=== PATIENT | female | born 1995 | race Asian ===

== ENCOUNTER 2018-12-06 04:16 | Inpatient (IN) | payer OTHER ==
[~2018-12-06] VITALS: Ht 167.6 cm; Wt 83.9 kg
[2018-12-06 04:22] VITALS: Ht 167.6 cm; Wt 83.9 kg
[2018-12-06 05:52] LABS: BASOPHIL % 0.4 % (0-2); PLATELET COUNT 260 x10^3mcL (130-400); RED CELL DISTRIBUTION WIDTH 13.5 % (11.5-14.5)
[2018-12-06 06:25] LABS: CALCIUM 9.8 mg/dL (8.5-10.1); CARBON DIOXIDE 22.4 mmol/L (21-32); CHLORIDE SERUM 103 mmol/L (98-107); CREATININE SERUM 0.8 mg/dL (0.6-1.0); GFR1 > 60 mL/min; GLUCOSE SERUM 101 mg/dL (74-106); POTASSIUM SERUM 3.3 mmol/L (3.5-5.1); SODIUM SERUM 141 mmol/L (136-145)
[2018-12-06 06:29] LABS: ALBUMIN 4.6 g/dL (3.4-5.0); ALKALINE PHOSPHATASE 72 U/L (46-116); ALT/SGPT 29 U/L (14-59); AST/SGOT 14 U/L (15-37); BILIRUBIN TOTAL 0.66 mg/dL (0.20-1.00)
[2018-12-06 06:29] LABS: AMPHETAMINE QUAL UR NONE DETECTED (See below)
[2018-12-06 06:31] LABS: TOTAL PROTEIN, SERUM 8.5 g/dL (6.4-8.2)
[2018-12-07] MEDS ORDERED: FLONASE ALLERG9.9 ML NS (12:43)
[2018-12-07] MEDS ORDERED: QUALITY CHOICE10 M2 PO (12:43)
[2018-12-07 13:52] VITALS: BP 123/71
[2018-12-07 16:51] VITALS: BP 119/65
[2018-12-07 20:35] VITALS: BP 119/65
[2018-12-08] MEDS ORDERED: LEXAPRO5 M1 PO (11:13)
== END 2018-12-07 21:25 | disposition home or self-care (01) | DRG 885 ==
LOC: ED 04:16 → MU 12-07 11:40 → EDBEDREQ 12-07 11:41 → MU 12-07 12:47
PROVIDERS: Emergency Medicine; ADMIT General Practice
DX: F23 Brief psychotic disorder (principal); R45.851 Suicidal ideations; F41.9 Anxiety disorder, unspecified; Z91.010 Allergy to peanuts; J45.909 Unspecified asthma, uncomplicated
CPT/HCPCS: G0480; J1630; J2060; J2250; J7030

== ENCOUNTER 2018-12-30 20:00 | Inpatient (IN) | payer MEDICAID, OTHER ==
[~2018-12-30] VITALS: Ht 162.6 cm; Wt 74.8 kg
[~2018-12-30 20:00] MED LIST: FLONASE ALLERG9.9 ML NS; LEXAPRO5 M1 PO; QUALITY CHOICE10 M2 PO
[2018-12-30 20:33] VITALS: Ht 162.6 cm; Wt 74.8 kg
--- NOTE | 2018-12-30 20:55 | NUR ---
PT BIB PARENTS FOR C/O OF ANXIETY THAT STARTED LAST SATURDAY WHILE AT A FAMILY GATHERING. PER PTS PT FORGOT TO TAKE HER RX OF ESCILATLOPRAM THAT DAY. PT CONTINUED WITH HER ESCILATOPRAM THE NEXT DAY BUT HER ANXIETY CONTINUED. PT HAS RX FOR ATIVAN BUT TOLD HER PARENTS SHE DID NOT WANT TO TAKE IT FOR FEAR SHE MIGHT BECOME ADDICTED. UPON ASSESSMENT PT SITTING ON THE EDGE OF THE BED. PT IS NON-VERBAL AT THIS TIME AND REFUSING TO ANSWER ANY QUESTION. PARENTS REPORT PT HAS BEEN LIKE THIS SINCE SATURDAY. PT APPEARS APREHENSIVE TO CARE WITHDRWALS WHEN ATTEMPTING PREFORM PROCEDURES HOWEVER PT IS COOPERATING AND ALLOWING STAFF TO PREFORM PROCEDURES. RESP ARE EQUAL AND UNLABORED. BOTH PARENT AT BEDSIDE.
[2018-12-30 21:10] LABS: BASOPHIL % 0.7 % (0-2); PLATELET COUNT 342 x10^3mcL (130-400); RED CELL DISTRIBUTION WIDTH 13.6 % (11.5-14.5)
--- NOTE | 2018-12-30 21:19 | NUR ---
PT AMBULATED TO RESTRROM ACCOMP[ANIED BY PARENTS. PT NOTED TO BE WALKING TOWARDS EXIT IF TRYING TO LEAVE PT EASILY REDIRECTED BACK TO ROOM BY PARENTS. PARENTS REQUESTING ATIVAN FOR PT ANXIETY. MD MULLIGAN MADE AWARE AND WOULD LIKE TO HOLD OFF TILL TELE/PSYCH EVALUATION. PARENTS MADE AWARE.
[2018-12-30 21:22] LABS: CALCIUM 9.7 mg/dL (8.5-10.1); CARBON DIOXIDE 23.7 mmol/L (21-32); CHLORIDE SERUM 102 mmol/L (98-107); CREATININE SERUM 0.8 mg/dL (0.6-1.0); GFR1 > 60 mL/min; GLUCOSE SERUM 122 mg/dL (74-106); POTASSIUM SERUM 3.4 mmol/L (3.5-5.1); SODIUM SERUM 139 mmol/L (136-145)
[2018-12-30 21:27] LABS: ALBUMIN 4.4 g/dL (3.4-5.0); ALKALINE PHOSPHATASE 85 U/L (46-116); ALT/SGPT 58 U/L (14-59); AST/SGOT 22 U/L (15-37); BILIRUBIN TOTAL 0.5 mg/dL (0.20-1.00); TOTAL PROTEIN, SERUM 8.8 g/dL (6.4-8.2)
--- NOTE | 2018-12-30 21:36 | NUR ---
PT GETTING OUT OF BED WALKING TOWARDS EXIT IF TRYING TO LEAVE BUT EASILY DIRECTED BACK TO BED BY FATHER. MOTHER REPORTS THAT SHE GAVE PT 0.5 OF ATVIVAN FOR HER ANXIETY. MD MULLIGAN MADE AWARE.
--- NOTE | 2018-12-30 21:50 | NUR ---
PT MEDICATED PER EMAR AND PLACED ON METER AND REGULATOR SHOP SUPERVISOR.
--- NOTE | 2018-12-30 22:26 | NUR ---
PT LAYING BACK IN BED AND APPEARS TO BE LESS ANXIOUS. PT HR TACHY AT 106, ALL OTHER VITALS ARE WNL. PARENTS AT BEDSIDE. NO ACUTE DISTRESS NOTED.
--- NOTE | 2018-12-30 23:33 | NUR ---
PT RESTING IN BED, PT DOES NOT APPEAR TO BE ANXIOUS AT THIS TIME. PT TALKING NOW AND REQUESTING WATER. PT HAS NO COMPLAINTS AT THIS TIME. PT HR TACHY AT 106, ALL OTHER VITALS WNL. NO ACUTE DISTRESS NOTED. FAMILY AT BEDSIDE. TELE/PSYCH MONITOR PLACED AT BEDSIDE.
--- NOTE | 2018-12-31 | NUR ---
PT IN BED RESTING. DENIES PAIN AT THIS TIME. NO S/S OF DISTRESS. CALL LIGHT WITHIN REACH. BED AT LOWEST POSITION. WILL CONTINUE TO MONITOR.
--- NOTE | 2018-12-31 00:46 | NUR ---
PT'S PARENTS APPROACHED NURSE'S STATION SAYING THAT THEY WILL BE LEAVING AT THIS TIME, HOWEVER TO CONTACT THEM NEEDED. LIGHTS TURNED DOWN FOR COMFORT, RESP E/U, GOOD CHEST RISE AND FALL NOTED. SIDE RAILS UP FOR SAFETY, BED IN LOWEST POSITION. PT IN DIRECT SIGHT OF NURSE'S STATION.
--- NOTE | 2018-12-31 01:19 | NUR ---
PT SLEEPING AT THIS TIME, EQUAL CHEST RISE AND FALL NOTED. VITALS ARE WNL. NO ACUTE DISTRESS NOTED. PT IN FULL VIEW OF NURSING STATION.
--- NOTE | 2018-12-31 02:30 | NUR ---
GAVE REPORT ON PT TO FABIANO/SHERRIE BREWER BEFORE HIS EVALUATION OF THE PT.
--- NOTE | 2018-12-31 03:53 | NUR ---
PT RESTING IN BED AT THIS TIME. PT GIVEN PUDDING UPON REQUEST. PT VITALS ARE WNL. PT NOT REPORTING ANY PAIN AT THIS TIME. UPON LEAVING ROOM PT STATES "I HAVE A QUESTION" PT HAS LONG PAUSE IF THINK BUT DOES NOT ASK A QUESTION. PT ASKED IF THERE IS A QUESTION SHE WOULD LIKED ANSWERED BUT CONTINUES NOT TO SPEAK. PT HAS DONE THIS MULTIPLE TIME THROUGHOUT THE NIGHT.
--- NOTE | 2018-12-31 05:12 | NUR ---
PT RESTING BED. PT VITALS ARE WNL. PT NOT COMPLAINING OF ANY PAIN AT THIS TIME. PT GIVEN TOOTHBRUSH AND TOOTH PASTE ON REQUEST.
--- NOTE | 2018-12-31 07:08 | NUR ---
RECEIVED REPORT FROM ALLIE HANCOCK
--- NOTE | 2018-12-31 07:15 | NUR ---
BREAKFAST PROVIDED TO PATIENT. AT BEDSIDE.
--- NOTE | 2018-12-31 07:28 | NUR ---
PATIENT UP AT BEDSIDE AND BRUSHING HER TEETH AT ROOM SINK. RESP ARE E/U BILATERAL CHEST RISE. PATIENT IN NAD. LIGHTS ARE DIMMED TO PROMOTE PATIENT COMFORT.
--- NOTE | 2018-12-31 07:45 | NUR ---
PT RESTING AT BEDSIDE IN NAD. BREATHING E/U BILATERAL CHEST RISE. PT REQUESTS TO HAVE THE BREAKFAST BROUGHT TO HER BED. PATIENT REQUESTS FOR AN ADDITIONAL BLANKET AND REQUESTS THAT ONE OF THE LIGHTS ARE TURNED ON. PATIENT CONTINUES TO ASK WHAT TIME IT IS AND ASKS IF SHE CAN TAKE A SHOWER. WET WIPES AND ADDITIONAL BLANKET PROVIDED TO PATIENT. CURTAINS LEFT WIDE OPEN AND PATIENT CAN BE VISUALIZED FROM NURSES STATION.
--- NOTE | 2018-12-31 07:46 | NUR ---
PATIENT STS SHE IS UNABLE TO URINATE AT THIS TIME. WILL CHECK AGAIN AT A LATER TIME
[2018-12-31] MEDS ORDERED: ATIVAN0.5 M1 (08:28)
--- NOTE | 2018-12-31 08:37 | NUR ---
PT CURRENTLY EATING BREAKFAST AT BEDSIDE
--- NOTE | 2018-12-31 08:53 | NUR ---
PT RESTING AT BEDSIDE IN NAD
--- NOTE | 2018-12-31 08:55 | NUR ---
CALLED WARD ASSISTANT TERRY. STS HE NEEDS 10 MINUTES, WILL CALL BACK AGAIN IN 10 MINUTES
--- NOTE | 2018-12-31 08:58 | NUR ---
FAMILY AT BEDSIDE
--- NOTE | 2018-12-31 09:12 | NUR ---
REPORT GIVEN TO ALLIE DELVALLE
--- NOTE | 2018-12-31 09:28 | NUR ---
PATIENT ARRIVED TO FLOOR VIA GURNEY.
--- NOTE | 2018-12-31 09:58 | NUR ---
PRESIDENT AND CHIEF EXECUTIVE OFFICER MIRIAM IN TO SPEAK WITH PATIENT. RESOURCES GIVEN TO PATIENT FAMILY ABOUT CLINICS AND MEDICATION. FAMILY AT BEDSIDE, CALL LIGHT IN REACH AT THIS TIME. SITTER AT BEDSIDE DUE TO GRAVELY DISABLED.
--- NOTE | 2018-12-31 10:26 | NUR ---
Discount pharmacy card and list to low cost medical clinics given to patient by Guanaco Anand.
[2018-12-31 11:17] VITALS: BP 115/70
--- NOTE | 2018-12-31 13:12 | NUR ---
PATIENT IN BED SLEEPING. FAMILY AT BEDSIDE. NO SIGNS OF DISTRESS OR ANXIOUSNESS. SITTER AT DOORWAY. CALL LIGHT IN REACH AT THIS TIME.
[2018-12-31 13:29] VITALS: BP 135/81
--- NOTE | 2018-12-31 14:55 | NUR ---
PATIENT RELOCATED TO RM 258B. NO COMPLAINTS AT THIS TIME, FAMILY AND FRIENDS AT BEDSIDE. CALL LIGHT IN REACH AT THIS TIME.
[2018-12-31 16:39] VITALS: BP 129/82
--- NOTE | 2018-12-31 18:03 | NUR ---
PATIENT IN BED SLEEPING. FRIEND AT BEDSIDE. NO SIGNS OF DISTRESS AT THIS TIME. PATIENT, FAMILY, AND FRIEND AWARE THAT URINE SAMPLE IS NEEDED. WILL ENDORSE TO ONCOMING NURSE. CALL LIGHT IN REACH AT THIS TIME.
--- NOTE | 2018-12-31 19:30 | NUR ---
PT RECIEVED FROM DAY NURSE. PT IN BED, RESTING COMFORTABLY. FRIEND AT BEDSIDE. NO S/S OF DISTRESS AT THIS TIME. NO SOB ON RA. PT DENIES PAIN AT THIS TIME. NO SIGNS OF N/V, DIZZINESS, OR PALPATATIONS. CALL LIGHT WITHIN REACH. BED AT LOWEST POSTITION. WILL CONTINUE TO MONITOR.
[2018-12-31 21:02] VITALS: BP 110/55
[2018-12-31 23:18] LABS: UA SPECIFIC GRAVITY >=1.030 (1.005-1.035); microscopic required? YES; urine erythrocyte 3+ (NEGATIVE)
[2018-12-31 23:33] LABS: AMPHETAMINE QUAL UR NONE DETECTED (See below)
--- NOTE | 2019-01-01 00:50 | NUR ---
PT. IN BED. COMPLAINING OF SLEEPLESSNESS, REQUESTED ATIVAN. GAVE ATIVAN PRN PER ORDERS. CALL LIGH WITHIN REACH. BED AT LOWEST POSITION. WILL CONTINUE TO MONITOR.
--- NOTE | 2019-01-01 05:04 | NUR ---
PT RESTING IN BED. EYES CLOSED. PARENTS AT BEDSIDE. NO S/S OF PAIN OR DISTRESS. NO SIGNIFICANT CHANGES THIS SHIFT. CALL LIGHT WITHIN REACH BED AT LOWEST POSITION. WILL ENDORSE TO DAY NURSE.
[2019-01-01 05:46] VITALS: BP 109/61
--- NOTE | 2019-01-01 07:30 | NUR ---
RECEIVED PT IN NO ACUTE DISTRESS. PT IN THE BATHROOM BRUSHING HER TEETH. ABLE TO SHOWER THIS AM. PT'S PARENTS AT BEDSIDE. CALL LIGHT WITHIN REACH. WILL CONTINUE TO MONITOR.
--- NOTE | 2019-01-01 08:06 | NUR ---
IV TO LFA LEAKING WHEN FLUSHED, DC'D WITH CATHETER INTACT. PT STATED SHE IS VERY HARD STICK, DOES NOT WANT NEW IV ACCESS AT THIS TIME. WILL NOTIFY HOME OFFICE REPRESENTATIVE MIRIAM.
[2019-01-01 08:52] LABS: CALCIUM 10.4 mg/dL (8.5-10.1); CARBON DIOXIDE 24.5 mmol/L (21-32); CHLORIDE SERUM 103 mmol/L (98-107); CREATININE SERUM 0.9 mg/dL (0.6-1.0); GFR1 > 60 mL/min; GLUCOSE SERUM 143 mg/dL (74-106); POTASSIUM SERUM 3.7 mmol/L (3.5-5.1); SODIUM SERUM 140 mmol/L (136-145)
[2019-01-01 09:10] VITALS: BP 141/73
[2019-01-01 09:14] LABS: BASOPHIL % 0.4 % (0-2); PLATELET COUNT 345 x10^3mcL (130-400); RED CELL DISTRIBUTION WIDTH 13.9 % (11.5-14.5)
--- NOTE | 2019-01-01 11:16 | NUR ---
MIRIAM DIRECTOR OF CURRICULUM AWARE OF PT HAVING NO IV ACCESS AT THIS TIME. PT ALSO REQUESTED MEDICATION FOR A CUT UNDER HER LEFT PINKY FINGER NAIL AND FOR HEMORRHOID CREAM. TELEPHONE ORDERS RECEIVED AND READ BACK.
--- NOTE | 2019-01-01 13:01 | NUR ---
DR. ORNELAS AT BEDSIDE TO EVALUATE PT.
[2019-01-01 13:15] VITALS: BP 141/73
--- NOTE | 2019-01-01 13:52 | NUR ---
PT AWAKE, ALERT, AND ORIENTED. VSS. AMBULATORY. DISCHARGE EDUCATION PROVIDED, PT VERBALIZED UNDERSTANDING. INSTRUCTED PT TO FOLLOW UP WITH PCP. BELONGINGS WITH PT. [facility] STUDENT NURSE ACCOMPANIED PT TO LOBBY.
== END 2019-01-01 13:54 | disposition home or self-care (01) | DRG 751 ==
LOC: ED 20:00 → MU 12-31 07:31 → DU 12-31 07:31 → MU 12-31 09:26
PROVIDERS: Emergency Medicine; ADMIT General Practice
DX: F33.2 Major depressive disorder, recurrent severe without psychotic features (principal); G93.40 Encephalopathy, unspecified; R45.851 Suicidal ideations; Z87.891 Personal history of nicotine dependence
CPT/HCPCS: G0378; G0480; J2060; J7030; Q0092